=== PATIENT | female | born 1975 | race African-American/Black ===

== ENCOUNTER 2016-10-24 20:50 | Emergency (ER) | payer OTHER ==
[~2016-10-24] VITALS: Ht 165.1 cm; Wt 90.9 kg
[~2016-10-24 20:50] MED LIST: CIPRO500 MG PO; MOTRIN800 MG PO; NOHOMEMEDS
[2016-10-24] MEDS ORDERED: PERCOCET 5/31 TABLET PO (22:56)
[2016-10-24] MEDS ORDERED: KEFLEX500 MG PO (22:56)
[2016-10-24 23:25] VITALS: BP 138/72
== END 2016-10-24 23:29 | disposition home or self-care (01) ==
LOC: EXP 20:50 → EME 20:50 → EXP 23:29
DX: M12.9 Arthropathy, unspecified (principal); Z87.81 Personal history of (healed) traumatic fracture
CPT/HCPCS: 99281; 99284

== ENCOUNTER 2017-02-14 09:50 | Emergency (ER) | payer SELFPAY ==
[~2017-02-14] VITALS: Ht 165.1 cm; Wt 98.3 kg
[~2017-02-14 09:50] MED LIST changes: +KEFLEX500 MG PO; +PERCOCET 5/31 TABLET PO
[2017-02-14] MEDS ORDERED: FLEXERIL10 MG PO (13:00)
[2017-02-14] MEDS ORDERED: TYLENOL WITH C1 EACH PO (13:00)
[2017-02-14 13:07] VITALS: BP 135/79
== END 2017-02-14 13:09 | disposition home or self-care (01) ==
LOC: EME 09:50
DX: S16.1XXA Strain of muscle, fascia and tendon at neck level, initial encounter (principal); X58.XXXA Exposure to other specified factors, initial encounter
CPT/HCPCS: 72040; 99281; 99284

== ENCOUNTER 2017-03-29 19:29 | Emergency (ER) | payer OTHER ==
[~2017-03-29] VITALS: Ht 165.1 cm; Wt 98.2 kg
[~2017-03-29 19:29] MED LIST changes: +FLEXERIL10 MG PO; +TYLENOL WITH C1 EACH PO
[2017-03-29 19:34] VITALS: BP 174/108
[2017-03-29] MEDS ORDERED: ATARAX,VISTARIL25 MG PO (20:16)
== END 2017-03-29 20:38 | disposition home or self-care (01) ==
LOC: EME 19:29
DX: L29.9 Pruritus, unspecified (principal); R21 Rash and other nonspecific skin eruption
CPT/HCPCS: 99281; 99283; Q0177

== ENCOUNTER 2018-02-16 07:44 | Emergency (ER) | payer OTHER ==
[~2018-02-16] VITALS: Ht 165.1 cm; Wt 90.9 kg
[~2018-02-16 07:44] MED LIST changes: +ATARAX,VISTARIL25 MG PO
[2018-02-16] MEDS ORDERED: MEDROL DOSEPAK4 MG PO (10:59)
[2018-02-16] MEDS ORDERED: PERCOCET 5/31 TABLET PO (10:59)
[2018-02-16 11:13] VITALS: BP 132/87
== END 2018-02-16 11:14 | disposition home or self-care (01) ==
LOC: EME 07:44
DX: M54.31 Sciatica, right side (principal); M79.604 Pain in right leg
CPT/HCPCS: 73502; 73552; 73564; 93971; 99281; 99284; J1100